=== PATIENT | female | born 1935 | race Caucasian/White ===

== ENCOUNTER 2019-10-23 10:24 | Inpatient (IN) ==
[~2019-10-23 10:24] MED LIST: ETOMIDATE 20 MG/10 ML VIAL IV ONE; LIDOCAINE 2% 5 ML VIAL ONE; ONDANSETRON 4 MG/2 ML VIAL ONE
[2019-10-23] MEDS ORDERED: DICYCLOMINE 20 MG/2 ML AMP IM ONE (10:47)
[2019-10-23] MEDS ORDERED: ONDANSETRON 4 MG/2 ML VIAL IV STA (10:47)
[2019-10-23] MEDS ORDERED: PANTOPRAZOLE 40 MG VIAL IV STA (10:47)
[2019-10-23] MEDS ORDERED: METOCLOPRAMIDE 10 MG/2 ML VIAL IV STA (10:47)
[2019-10-23] MEDS ORDERED: SODIUM CHLORIDE 0.9% 1,000 ML IV STA ×2 (10:47→12:32)
[2019-10-23 11:47] LABS: Basophils % 0.2 % (0.0-0.8); Hematocrit 51.8 VOL% (35.7-47.0); Hemoglobin 18.2 GM/DL (12.0-16.0); Immature Granulocytes Absolute 0.25 #; Lymphocytes # 0.9 10*3/uL (1.4-4.0); Lymphocytes % 3.5 % (21.3-54.2); Mean Corpuscular HGB Conc 35.1 GM/DL (32-36); Mean Corpuscular Volume 80.8 FL (87-102); Mean Platelet Volume 10.1 FL (9.6-12.0); Monocytes % 8.4 % (1.7-12.7); Neutrophils % 86.9 % (38.7-73.9); Platelet Count 457 T/CUMM (130-400); Red Blood Count 6.41 MC/CUMM (3.8-5.5); Red Cell Distribution Width 17.2 % (9.3-17.3); White Blood Count 26.2 T/CUMM (4-12)
[2019-10-23] MEDS ORDERED: LEVOFLOXACIN INJ 750 MG in PREMIX 1 EACH IV STA (12:02)
[2019-10-23] MEDS ORDERED: metroNIDAZOLE INJ 500 MG in PREMIX 1 EACH IV STA (12:02)
[2019-10-23 12:07] LABS: Troponin I 0.029 NG/ML (0.00-0.045)
[2019-10-23 12:13] LABS: Band Neutrophils 37 % (0-10); Lymphocytes 6 % (20-55); Macrocytosis Slight; Metamyelocytes 7 %; Platelet Estimate Normal; Segmented Neutrophils 42 % (50-85); Total Cells Counted 100
[2019-10-23 12:14] LABS: Anisocytosis 1+; Giant Platelets Few
[2019-10-23 12:26] LABS: Albumin 2.7 G/DL (3.4-5.0); Bilirubin,Total 1.7 MG/DL (0.2-1.0); Calcium 8.8 MG/DL (8.5-10.1); Osmolality,Calculated 255.8 MOS/KG (273-304); Total Protein 7.5 G/DL (6.4-8.3)
[2019-10-23] MEDS ORDERED: metroNIDAZOLE 500 MG/100 ML PREMIX IV ONE (12:41)
[2019-10-23 12:48] LABS: Amorphous Crystals,Urine Occasional /HPF (Few); Apearance,Urine CLOUDY (Clear); Bacteria,Urine Many /HPF (Few); Bilirubin,Urine Negative (Negative); Blood, Urine Large mg/dL (Negative); Glucose,Urine (UA) Negative (Negative); Ketones,Urine 5 mg/dL (Negative); Mucus,Urine Occasional /LPF (Occasional); Nitrite,Urine Negative (Negative); Protein,Urine 30 MG/DL; RBC,Urine 24 /HPF (0-4); Squamous Epithelial Cell,Urine Moderate /HPF (0-10); Urine Color Amber (Yellow); Urine Specific Gravity 1.015 (1.001-1.035); WBC,Urine 11 /HPF (0-6)
[2019-10-23] MEDS ORDERED: ONDANSETRON 4 MG/2 ML VIAL IV PRN (14:32)
[2019-10-23] MEDS ORDERED: DEXTROSE 10% 250 ML BAG IV PRN (14:32)
[2019-10-23] MEDS ORDERED: GLUCAGON 1 MG VIAL IM PRN (14:32)
[2019-10-23] MEDS ORDERED: MAGNESIUM SULF RIDER 4 GM in PREMIX 1 EACH IV PRN (14:47)
[2019-10-23] MEDS ORDERED: MAGNESIUM SULF RIDER 2 GM in PREMIX 1 EACH IV PRN (14:47)
[2019-10-23 16:30] LABS: Calcium 7.5 MG/DL (8.5-10.1); Osmolality,Calculated 264.8 MOS/KG (273-304)
[2019-10-23] MEDS ORDERED: HYDROmorphone 2 MG/1 ML VIAL IV ONE (16:56)
[2019-10-23] MEDS ORDERED: CIPROFLOXACIN INJ 400 MG in PREMIX 1 EACH IV SCH (17:00)
[2019-10-23] MEDS: metroNIDAZOLE INJ 500 MG in PREMIX 1 EACH IV SCH (17:23)
[2019-10-23] MEDS: SODIUM CHLORIDE 0.9% 1,000 ML IV SCH (17:23)
[2019-10-23 17:26] LABS: Hepatitis B Core IgM Quant 0.06 Index; Hepatitis B Surface Ag Quant 0.12 Index; Hepatitis B Surface Ag Result Negative (Negative); Hepatitis C Virus Ab Quant 0.05 Index; Hepatitis C Virus Ab Result Negative (Negative)
[2019-10-23] MEDS ORDERED: POTASSIUM CHLORIDE 20 MEQ TABLET PO ONE (17:45)
[2019-10-23] MEDS: POTASSIUM CHLORIDE RIDER 10 MEQ in PREMIX 1 EACH IV PRN ×3 (18:42→22:44)
[2019-10-24] MEDS: metroNIDAZOLE INJ 500 MG in PREMIX 1 EACH IV SCH ×4 (00:01→17:46)
[2019-10-24] MEDS: POTASSIUM CHLORIDE RIDER 10 MEQ in PREMIX 1 EACH IV PRN ×3 (02:09→05:12)
[2019-10-24] MEDS: SODIUM CHLORIDE 0.9% 1,000 ML IV SCH ×3 (03:08→21:58)
[2019-10-24 07:05] LABS: Basophils # 0.1 10*3/uL (0.0-0.2); Basophils % 0.3 % (0.0-0.8); Hematocrit 46.8 VOL% (35.7-47.0); Immature Granulocytes % 1.6 %; Immature Granulocytes Absolute 0.37 #; Lymphocytes # 0.8 10*3/uL (1.4-4.0); Lymphocytes % 3.4 % (21.3-54.2); Mean Corpuscular HGB Conc 34.2 GM/DL (32-36); Mean Corpuscular Volume 82.8 FL (87-102); Mean Platelet Volume 10.8 FL (9.6-12.0); Monocytes % 8.4 % (1.7-12.7); Neutrophils % 86.3 % (38.7-73.9); Platelet Count 376 T/CUMM (130-400); Red Blood Count 5.65 MC/CUMM (3.8-5.5); Red Cell Distribution Width 16.2 % (9.3-17.3); White Blood Count 22.7 T/CUMM (4-12)
[2019-10-24 07:32] LABS: Albumin 2.3 G/DL (3.4-5.0); Bilirubin,Total 1.8 MG/DL (0.2-1.0); Calcium 8.5 MG/DL (8.5-10.1); Osmolality,Calculated 251.8 MOS/KG (273-304); Risk Ratio 4.95; Thyroid Stimulating Hormone 0.939 uIU/ml (0.358-3.74); Total Protein 6.2 G/DL (6.4-8.3)
[2019-10-24 07:38] LABS: Band Neutrophils 11 % (0-10); Hypochromasia 1+; Lymphocytes 7 % (20-55); Segmented Neutrophils 76 % (50-85); Total Cells Counted 100
[2019-10-24 07:39] LABS: Anisocytosis 1+; Platelet Estimate Normal
[2019-10-24] MEDS: PANTOPRAZOLE 40 MG VIAL IV SCH (09:52)
[2019-10-24] MEDS: CIPROFLOXACIN INJ 400 MG in PREMIX 1 EACH IV SCH (09:56)
[2019-10-24] MEDS ORDERED: ACETAMINOPHEN 325 MG TABLET PO PRN (10:42)
[2019-10-24] MEDS: traMADol 50 MG TABLET PO PRN (11:41)
[2019-10-24 12:24] LABS: Calcium 8.6 MG/DL (8.5-10.1); Osmolality,Calculated 251.8 MOS/KG (273-304)
[2019-10-24 18:25] LABS: Calcium 8.5 MG/DL (8.5-10.1); Osmolality,Calculated 249.8 MOS/KG (273-304)
[2019-10-25] MEDS: metroNIDAZOLE INJ 500 MG in PREMIX 1 EACH IV SCH ×4 (00:03→18:42)
[2019-10-25] MEDS: CIPROFLOXACIN INJ 400 MG in PREMIX 1 EACH IV SCH (03:30)
[2019-10-25 06:16] LABS: Basophils % 0.1 % (0.0-0.8); Hematocrit 43.1 VOL% (35.7-47.0); Hemoglobin 14.7 GM/DL (12.0-16.0); Immature Granulocytes % 3.4 %; Immature Granulocytes Absolute 0.69 #; Lymphocytes # 0.9 10*3/uL (1.4-4.0); Lymphocytes % 4.3 % (21.3-54.2); Mean Corpuscular HGB Conc 34.1 GM/DL (32-36); Mean Corpuscular Volume 82.1 FL (87-102); Mean Platelet Volume 10.8 FL (9.6-12.0); Monocytes % 8.6 % (1.7-12.7); Neutrophils % 83.6 % (38.7-73.9); Platelet Count 272 T/CUMM (130-400); Red Blood Count 5.25 MC/CUMM (3.8-5.5); Red Cell Distribution Width 16.2 % (9.3-17.3); White Blood Count 20.4 T/CUMM (4-12)
[2019-10-25 07:04] LABS: Albumin 1.7 G/DL (3.4-5.0); Bilirubin,Total 1.4 MG/DL (0.2-1.0); Osmolality,Calculated 250.5 MOS/KG (273-304); Total Protein 5.3 G/DL (6.4-8.3)
[2019-10-25 07:08] LABS: Band Neutrophils 4 % (0-10); Hypochromasia Slight; Lymphocytes 7 % (20-55); Platelet Estimate Adequate; Segmented Neutrophils 81 % (50-85); Total Cells Counted 100
[2019-10-25] MEDS: PANTOPRAZOLE 40 MG VIAL IV SCH (08:55)
[2019-10-25] MEDS: POLYETHYLENE GLYCOL POWDER 17 GM PACK PO SCH (10:28)
[2019-10-25] MEDS: DOCUSATE SODIUM 100 MG CAPSULE PO SCH ×2 (10:28→22:48)
[2019-10-25] MEDS: traMADol 50 MG TABLET PO PRN (11:50)
[2019-10-25] MEDS: SODIUM CHLORIDE 0.9% 1,000 ML IV SCH (13:43)
[2019-10-25] MEDS: SODIUM BICARB INJ 150 MEQ in STERILE WATER INJ 850 ML IV SCH (16:32)
[2019-10-26] MEDS: CIPROFLOXACIN INJ 400 MG in PREMIX 1 EACH IV SCH ×2 (01:55→15:11)
[2019-10-26] MEDS: metroNIDAZOLE INJ 500 MG in PREMIX 1 EACH IV SCH ×4 (05:22→18:03)
[2019-10-26 06:40] LABS: Hematocrit 38.1 VOL% (35.7-47.0); Hemoglobin 12.9 GM/DL (12.0-16.0); Immature Granulocytes % 5.4 %; Immature Granulocytes Absolute 1.23 #; Lymphocytes # 1.1 10*3/uL (1.4-4.0); Lymphocytes % 4.7 % (21.3-54.2); Mean Corpuscular HGB Conc 33.9 GM/DL (32-36); Mean Corpuscular Volume 81.8 FL (87-102); Mean Platelet Volume 11.1 FL (9.6-12.0); Monocytes % 10.7 % (1.7-12.7); Neutrophils % 79.2 % (38.7-73.9); Platelet Count 262 T/CUMM (130-400); Red Blood Count 4.66 MC/CUMM (3.8-5.5); Red Cell Distribution Width 16.5 % (9.3-17.3)
[2019-10-26 07:13] LABS: Band Neutrophils 22 % (0-10); Lymphocytes 7 % (20-55); Metamyelocytes 4 %; Myelocytes 1 %; Platelet Estimate Normal; Segmented Neutrophils 57 % (50-85); Total Cells Counted 100
[2019-10-26 07:14] LABS: Anisocytosis Slight; Smudge Cells Few
[2019-10-26 07:20] LABS: Albumin 1.8 G/DL (3.4-5.0); Bilirubin,Total 1.6 MG/DL (0.2-1.0); Calcium 7.9 MG/DL (8.5-10.1); Osmolality,Calculated 257.5 MOS/KG (273-304)
[2019-10-26] MEDS: SODIUM BICARB INJ 150 MEQ in STERILE WATER INJ 850 ML IV SCH (07:30)
[2019-10-26 07:38] LABS: Calcium 7.5 MG/DL (8.5-10.1); Osmolality,Calculated 256.5 MOS/KG (273-304)
[2019-10-26] MEDS ORDERED: SODIUM BICARB INJ 100 MEQ in SODIUM CHLORIDE 0.45% 900 ML IV SCH (09:00)
[2019-10-26] MEDS: PANTOPRAZOLE 40 MG VIAL IV SCH (09:29)
[2019-10-26] MEDS: DOCUSATE SODIUM 100 MG CAPSULE PO SCH ×2 (09:29→20:15)
[2019-10-26] MEDS: POLYETHYLENE GLYCOL POWDER 17 GM PACK PO SCH (09:29)
[2019-10-26] MEDS: SODIUM BICARB INJ 100 MEQ in SODIUM CHLORIDE 0.45% 1,000 ML IV SCH (10:15)
[2019-10-26] MEDS: traMADol 50 MG TABLET PO PRN (10:21)
[2019-10-27] MEDS: metroNIDAZOLE INJ 500 MG in PREMIX 1 EACH IV SCH ×4 (00:26→17:24)
[2019-10-27] MEDS: SODIUM BICARB INJ 100 MEQ in SODIUM CHLORIDE 0.45% 1,000 ML IV SCH ×2 (00:29→18:10)
[2019-10-27] MEDS: SODIUM CHLORIDE 0.9% 1,000 ML IV SCH (05:22)
[2019-10-27 08:31] LABS: Basophils % 0.1 % (0.0-0.8); Hematocrit 40.3 VOL% (35.7-47.0); Hemoglobin 13.5 GM/DL (12.0-16.0); Immature Granulocytes % 5.1 %; Immature Granulocytes Absolute 1.45 #; Lymphocytes # 1.3 10*3/uL (1.4-4.0); Lymphocytes % 4.4 % (21.3-54.2); Mean Corpuscular HGB Conc 33.5 GM/DL (32-36); Mean Corpuscular Volume 83.8 FL (87-102); Mean Platelet Volume 10.3 FL (9.6-12.0); Monocytes % 10.1 % (1.7-12.7); NRBC # 0.02 10*3/uL; Neutrophils % 80.3 % (38.7-73.9); Platelet Count 217 T/CUMM (130-400); Red Blood Count 4.81 MC/CUMM (3.8-5.5); Red Cell Distribution Width 16.7 % (9.3-17.3); White Blood Count 28.4 T/CUMM (4-12)
[2019-10-27 09:23] LABS: Band Neutrophils 2 % (0-10); Hypochromasia 1+; Lymphocytes 6 % (20-55); Microcytosis 1+; Segmented Neutrophils 83 % (50-85); Total Cells Counted 100
[2019-10-27 09:24] LABS: Platelet Estimate Normal; Polychromasia Slight
[2019-10-27 09:30] LABS: Calcium 7.5 MG/DL (8.5-10.1)
[2019-10-27 09:31] LABS: Osmolality,Calculated 260.4 MOS/KG (273-304)
[2019-10-27] MEDS: CIPROFLOXACIN INJ 400 MG in PREMIX 1 EACH IV SCH (09:57)
[2019-10-27] MEDS: PANTOPRAZOLE 40 MG VIAL IV SCH (09:58)
[2019-10-27] MEDS: POLYETHYLENE GLYCOL POWDER 17 GM PACK PO SCH (09:58)
[2019-10-27] MEDS: DOCUSATE SODIUM 100 MG CAPSULE PO SCH ×2 (09:58→21:07)
[2019-10-27] MEDS: MULTIVITAMIN IV SCH (13:13)
[2019-10-27] MEDS: SODIUM BICARB IV SCH (13:13)
[2019-10-27] MEDS: [UNRECOGNIZED DRUG - OTHER] IV SCH (13:13)
[2019-10-27] MEDS: POTASSIUM CHLORIDE IV SCH (13:13)
[2019-10-27 18:43] LABS: Apearance,Urine CLEAR (Clear); Bacteria,Urine Occasional /HPF (Few); Bilirubin,Urine Negative (Negative); Blood, Urine Small mg/dL (Negative); Glucose,Urine (UA) Negative (Negative); Ketones,Urine Negative (Negative); Nitrite,Urine Negative (Negative); Protein,Urine 30 MG/DL; RBC,Urine 28 /HPF (0-4); Squamous Epithelial Cell,Urine Occasional /HPF (0-10); Urine Color Amber (Yellow); Urine Specific Gravity > 1.060 (1.001-1.035); WBC,Urine 1 /HPF (0-6)
[2019-10-28] MEDS: metroNIDAZOLE INJ 500 MG in PREMIX 1 EACH IV SCH ×3 (00:36→12:31)
[2019-10-28] MEDS: CIPROFLOXACIN INJ 400 MG in PREMIX 1 EACH IV SCH (04:06)
[2019-10-28 06:30] LABS: Basophils % 0.1 % (0.0-0.8); Hematocrit 42.5 VOL% (35.7-47.0); Hemoglobin 14.2 GM/DL (12.0-16.0); Immature Granulocytes % 4.2 %; Lymphocytes # 0.9 10*3/uL (1.4-4.0); Lymphocytes % 3.3 % (21.3-54.2); Mean Corpuscular HGB Conc 33.4 GM/DL (32-36); Mean Corpuscular Volume 84.2 FL (87-102); Monocytes % 5.5 % (1.7-12.7); NRBC # 0.04 10*3/uL; Neutrophils % 86.9 % (38.7-73.9); Platelet Count 218 T/CUMM (130-400); Red Blood Count 5.05 MC/CUMM (3.8-5.5); White Blood Count 28.4 T/CUMM (4-12)
[2019-10-28 06:54] LABS: Calcium 7.8 MG/DL (8.5-10.1); Osmolality,Calculated 254.8 MOS/KG (273-304)
[2019-10-28 07:38] LABS: Anisocytosis Slight; Band Neutrophils 26 % (0-10); Lymphocytes 4 % (20-55); Platelet Estimate Normal; Segmented Neutrophils 62 % (50-85); Smudge Cells Few; Total Cells Counted 100
[2019-10-28 09:12] LABS: Albumin 1.6 G/DL (3.4-5.0); Bilirubin,Direct 0.47 MG/DL (0.0-0.20); Bilirubin,Indirect 0.7 MG/DL (0.0-1.0); Bilirubin,Total 1.2 MG/DL (0.2-1.0); Total Protein 5.5 G/DL (6.4-8.3)
[2019-10-28] MEDS: traMADol 50 MG TABLET PO PRN ×2 (09:44→21:18)
[2019-10-28] MEDS: POLYETHYLENE GLYCOL POWDER 17 GM PACK PO SCH (09:44)
[2019-10-28] MEDS: DOCUSATE SODIUM 100 MG CAPSULE PO SCH ×2 (09:45→21:18)
[2019-10-28] MEDS: PANTOPRAZOLE 40 MG VIAL IV SCH (09:48)
[2019-10-28] MEDS: PIPERACILLIN/TAZOBACTAM 3,375 MG in SODIUM CHLORIDE 0.9% 100 ML IV SCH ×2 (14:03→21:18)
[2019-10-28] MEDS: POTASSIUM CHLORIDE RIDER 10 MEQ in PREMIX 1 EACH IV PRN ×4 (14:04→17:36)
[2019-10-28] MEDS: POTASSIUM CHLORIDE INJ 10 MEQ in DEXTROSE 5% NACL 0.9% 1,000 ML IV SCH (14:04)
[2019-10-28] MEDS: POTASSIUM CHLORIDE IV SCH (19:45)
[2019-10-28] MEDS: SODIUM BICARB IV SCH (19:45)
[2019-10-28] MEDS: MULTIVITAMIN IV SCH (19:45)
[2019-10-28] MEDS: [UNRECOGNIZED DRUG - OTHER] IV SCH (19:45)
[2019-10-28] MEDS ORDERED: FUROSEMIDE 20 MG/2 ML VIAL IV ONE (22:15)
[2019-10-28] MEDS ORDERED: ALBUTEROL/IPRATROPIUM 3 ML NEB RESP TX PRN (22:16)
[2019-10-29] MEDS: PIPERACILLIN/TAZOBACTAM 3,375 MG in SODIUM CHLORIDE 0.9% 100 ML IV SCH ×3 (05:52→21:56)
[2019-10-29] MEDS: POTASSIUM CHLORIDE INJ 10 MEQ in DEXTROSE 5% NACL 0.9% 1,000 ML IV SCH ×2 (07:15→14:53)
[2019-10-29 08:41] LABS: Basophils % 0.1 % (0.0-0.8); Hematocrit 43.8 VOL% (35.7-47.0); Hemoglobin 14.6 GM/DL (12.0-16.0); Immature Granulocytes Absolute 1.35 #; Lymphocytes # 1.5 10*3/uL (1.4-4.0); Lymphocytes % 4.3 % (21.3-54.2); Mean Corpuscular HGB Conc 33.3 GM/DL (32-36); Mean Corpuscular Volume 83.7 FL (87-102); Mean Platelet Volume 11.5 FL (9.6-12.0); Monocytes % 4.1 % (1.7-12.7); NRBC # 0.04 10*3/uL; Neutrophils % 87.5 % (38.7-73.9); Platelet Count 196 T/CUMM (130-400); Red Blood Count 5.23 MC/CUMM (3.8-5.5); Red Cell Distribution Width 17.2 % (9.3-17.3)
[2019-10-29 08:50] LABS: Calcium 7.8 MG/DL (8.5-10.1); Osmolality,Calculated 264.5 MOS/KG (273-304)
[2019-10-29 09:44] LABS: Band Neutrophils 23 % (0-10); Lymphocytes 8 % (20-55); Metamyelocytes 2 %; Myelocytes 1 %; Platelet Estimate Normal; Segmented Neutrophils 62 % (50-85); Smudge Cells Few; Total Cells Counted 100
[2019-10-29 09:45] LABS: Anisocytosis 1+; Macrocytosis Slight
[2019-10-29] MEDS: DOCUSATE SODIUM 100 MG CAPSULE PO SCH ×2 (10:30→22:05)
[2019-10-29] MEDS: POLYETHYLENE GLYCOL POWDER 17 GM PACK PO SCH (10:31)
[2019-10-29] MEDS: PANTOPRAZOLE 40 MG VIAL IV SCH (12:26)
[2019-10-29] MEDS: metroNIDAZOLE INJ 500 MG in PREMIX 1 EACH IV SCH ×2 (12:27→18:50)
[2019-10-29] MEDS: traMADol 50 MG TABLET PO PRN (12:36)
[2019-10-29] MEDS: DEXTROSE 5% NACL 0.9% 1,000 ML IV SCH (14:40)
[2019-10-30] MEDS: metroNIDAZOLE INJ 500 MG in PREMIX 1 EACH IV SCH ×4 (00:58→18:13)
[2019-10-30 02:04] LABS: Albumin 1.4 G/DL (3.4-5.0); Bilirubin,Total 0.9 MG/DL (0.2-1.0); Calcium 7.4 MG/DL (8.5-10.1); Osmolality,Calculated 279.8 MOS/KG (273-304); Total Protein 5.3 G/DL (6.4-8.3)
[2019-10-30 02:12] LABS: Basophils % 0.1 % (0.0-0.8); Hematocrit 45.2 VOL% (35.7-47.0); Hemoglobin 14.7 GM/DL (12.0-16.0); Immature Granulocytes % 3.9 %; Immature Granulocytes Absolute 1.49 #; Lymphocytes # 1.5 10*3/uL (1.4-4.0); Mean Corpuscular HGB Conc 32.5 GM/DL (32-36); Mean Corpuscular Volume 87.3 FL (87-102); Mean Platelet Volume 11.4 FL (9.6-12.0); Monocytes % 3.3 % (1.7-12.7); NRBC # 0.06 10*3/uL; Neutrophils % 88.7 % (38.7-73.9); Platelet Count 186 T/CUMM (130-400); Red Blood Count 5.18 MC/CUMM (3.8-5.5); Red Cell Distribution Width 18.1 % (9.3-17.3); White Blood Count 37.9 T/CUMM (4-12)
[2019-10-30 02:49] LABS: Band Neutrophils 2 % (0-10); Lymphocytes 1 % (20-55); Segmented Neutrophils 95 % (50-85); Total Cells Counted 100
[2019-10-30 02:50] LABS: Anisocytosis 1+; Platelet Estimate Normal
[2019-10-30] MEDS: DEXTROSE 5% NACL 0.9% 1,000 ML IV SCH ×3 (05:46→22:26)
[2019-10-30] MEDS: PIPERACILLIN/TAZOBACTAM 3,375 MG in SODIUM CHLORIDE 0.9% 100 ML IV SCH ×2 (06:07→15:21)
[2019-10-30] MEDS ORDERED: SODIUM CHLORIDE 0.9% 1,000 ML IV ONE ×2 (07:55→11:38)
[2019-10-30] MEDS: POLYETHYLENE GLYCOL POWDER 17 GM PACK PO SCH (09:17)
[2019-10-30] MEDS: LEVOTHYROXINE 75 MCG TABLET PO SCH (09:17)
[2019-10-30] MEDS: ASPIRIN EC 81 MG TABLET PO SCH (09:17)
[2019-10-30] MEDS: DOCUSATE SODIUM 100 MG CAPSULE PO SCH ×2 (09:17→22:26)
[2019-10-30] MEDS ORDERED: SODIUM PHOSPHATE ENEMA 133 ML BOTTLE RECTAL ONE (09:46)
[2019-10-30] MEDS: PANTOPRAZOLE 40 MG VIAL IV SCH (11:19)
[2019-10-30] MEDS: LACTATED RINGERS 1,000 ML IV SCH (11:22)
[2019-10-30] MEDS ORDERED: DEXTROSE 50% 25 GM/50 ML VIAL IV PRN (11:40)
[2019-10-30] MEDS: INSULIN LISPRO 100 UNIT/ML SUBCUT SCH ×2 (12:05→18:01)
[2019-10-30 17:22] LABS: Basophils % 0.1 % (0.0-0.8); Hematocrit 40.5 VOL% (35.7-47.0); Hemoglobin 13.1 GM/DL (12.0-16.0); Immature Granulocytes Absolute 1.17 #; Lymphocytes % 3.4 % (21.3-54.2); Mean Corpuscular HGB Conc 32.3 GM/DL (32-36); Mean Corpuscular Volume 87.7 FL (87-102); Mean Platelet Volume 11.3 FL (9.6-12.0); Monocytes % 3.6 % (1.7-12.7); NRBC # 0.05 10*3/uL; Neutrophils % 88.9 % (38.7-73.9); Platelet Count 163 T/CUMM (130-400); Red Blood Count 4.62 MC/CUMM (3.8-5.5); Red Cell Distribution Width 18.2 % (9.3-17.3); White Blood Count 29.1 T/CUMM (4-12)
[2019-10-30 17:40] LABS: Albumin 1.3 G/DL (3.4-5.0); Bilirubin,Total 0.8 MG/DL (0.2-1.0); Calcium 7.2 MG/DL (8.5-10.1); Osmolality,Calculated 284.2 MOS/KG (273-304); Total Protein 4.9 G/DL (6.4-8.3)
[2019-10-30 17:51] LABS: Lymphocytes 5 % (20-55); Microcytosis Slight; Segmented Neutrophils 94 % (50-85); Total Cells Counted 100
[2019-10-30 17:53] LABS: Anisocytosis 1+; Hypochromasia Slight; Poikilocytosis 1+; Polychromasia 1+
[2019-10-30 17:54] LABS: Burr Cells 1+; Platelet Estimate Normal; Toxic Granulation 1+
[2019-10-30] MEDS ORDERED: ALBUMIN 25% 25 GM in PREMIX 1 EACH IV ONE (20:50)
[2019-10-30] MEDS ORDERED: DOPamine 800 MG/250 ML PREMIX IV PRN (21:00)
[2019-10-30] MEDS: [UNRECOGNIZED DRUG - OTHER] IV SCH (21:58)
[2019-10-30] MEDS: TRACE ELEMENTS IV SCH (21:58)
[2019-10-30] MEDS: MULTIVITAMIN IV SCH (21:58)
[2019-10-30] MEDS: SODIUM CHLORIDE 0.9% 1,000 ML IV SCH (21:59)
[2019-10-31] MEDS: SODIUM CHLORIDE 0.9% 1,000 ML IV SCH ×4 (00:03→21:33)
[2019-10-31] MEDS: PIPERACILLIN/TAZOBACTAM 3,375 MG in SODIUM CHLORIDE 0.9% 100 ML IV SCH (01:12)
[2019-10-31] MEDS: metroNIDAZOLE INJ 500 MG in PREMIX 1 EACH IV SCH ×5 (01:13→23:38)
[2019-10-31] MEDS: INSULIN LISPRO 100 UNIT/ML SUBCUT SCH ×5 (01:13→23:35)
[2019-10-31 04:07] LABS: Basophils # 0.1 10*3/uL (0.0-0.2); Basophils % 0.6 % (0.0-0.8); Hematocrit 36.1 VOL% (35.7-47.0); Hemoglobin 11.4 GM/DL (12.0-16.0); Immature Granulocytes % 3.4 %; Immature Granulocytes Absolute 0.67 #; Lymphocytes # 0.8 10*3/uL (1.4-4.0); Lymphocytes % 4.1 % (21.3-54.2); Mean Corpuscular HGB Conc 31.6 GM/DL (32-36); Mean Corpuscular Volume 90.3 FL (87-102); Mean Platelet Volume 10.9 FL (9.6-12.0); Monocytes % 4.3 % (1.7-12.7); NRBC # 0.03 10*3/uL; Neutrophils % 87.6 % (38.7-73.9); Platelet Count 119 T/CUMM (130-400); Red Cell Distribution Width 18.4 % (9.3-17.3); White Blood Count 19.5 T/CUMM (4-12)
[2019-10-31 04:28] LABS: Albumin 1.7 G/DL (3.4-5.0); Bilirubin,Total 0.7 MG/DL (0.2-1.0); Calcium 7.5 MG/DL (8.5-10.1); Total Protein 4.8 G/DL (6.4-8.3)
[2019-10-31 04:29] LABS: Prealbumin 4.5 MG/DL (20-40)
[2019-10-31 04:35] LABS: Lymphocytes 5 % (20-55); Platelet Estimate Normal; Segmented Neutrophils 94 % (50-85); Total Cells Counted 100
[2019-10-31 04:36] LABS: Hypochromasia Slight; Microcytosis Slight; Polychromasia Slight; Target Cells Slight
[2019-10-31] MEDS: ASPIRIN EC 81 MG TABLET PO SCH (08:58)
[2019-10-31] MEDS: DOCUSATE SODIUM 100 MG CAPSULE PO SCH ×2 (08:58→20:42)
[2019-10-31] MEDS: POLYETHYLENE GLYCOL POWDER 17 GM PACK PO SCH (08:59)
[2019-10-31] MEDS: LEVOTHYROXINE 75 MCG TABLET PO SCH (08:59)
[2019-10-31] MEDS: PANTOPRAZOLE 40 MG VIAL IV SCH (08:59)
[2019-10-31] MEDS: LACTATED RINGERS 1,000 ML IV SCH (10:06)
[2019-10-31] MEDS: MEROPENEM 500 MG in SODIUM CHLORIDE 0.9% 100 ML IV SCH ×3 (10:21→20:43)
[2019-10-31] MEDS: POTASSIUM CHLORIDE RIDER 10 MEQ in PREMIX 1 EACH IV PRN ×2 (11:00→14:20)
[2019-10-31] MEDS: MULTIVITAMIN IV SCH (16:30)
[2019-10-31] MEDS: TRACE ELEMENTS IV SCH (16:30)
[2019-10-31] MEDS: [UNRECOGNIZED DRUG - OTHER] IV SCH (16:30)
[2019-11-01] MEDS: MEROPENEM 500 MG in SODIUM CHLORIDE 0.9% 100 ML IV SCH ×4 (02:08→20:44)
[2019-11-01] MEDS: metroNIDAZOLE INJ 500 MG in PREMIX 1 EACH IV SCH ×4 (05:06→23:50)
[2019-11-01] MEDS: SODIUM CHLORIDE 0.9% 1,000 ML IV SCH ×2 (05:06→18:24)
[2019-11-01] MEDS: INSULIN LISPRO 100 UNIT/ML SUBCUT SCH ×4 (05:06→23:44)
[2019-11-01 06:21] LABS: Basophils # 0.1 10*3/uL (0.0-0.2); Basophils % 0.4 % (0.0-0.8); Eosinophils % 0.2 % (0.00-10.9); Hematocrit 34.7 VOL% (35.7-47.0); Hemoglobin 10.7 GM/DL (12.0-16.0); Immature Granulocytes % 1.6 %; Lymphocytes # 0.5 10*3/uL (1.4-4.0); Lymphocytes % 3.9 % (21.3-54.2); Mean Corpuscular HGB Conc 30.8 GM/DL (32-36); Mean Platelet Volume 11.9 FL (9.6-12.0); Monocytes % 4.3 % (1.7-12.7); NRBC # 0.06 10*3/uL; Neutrophils % 89.6 % (38.7-73.9); Platelet Count 122 T/CUMM (130-400); Red Blood Count 3.77 MC/CUMM (3.8-5.5); Red Cell Distribution Width 18.7 % (9.3-17.3); White Blood Count 12.6 T/CUMM (4-12)
[2019-11-01 06:45] LABS: Band Neutrophils 7 % (0-10); Hypochromasia 1+; Lymphocytes 1 % (20-55); Segmented Neutrophils 88 % (50-85); Total Cells Counted 100
[2019-11-01 06:46] LABS: Burr Cells Few; Microcytosis 1+; Target Cells Slight
[2019-11-01] MEDS: ASPIRIN EC 81 MG TABLET PO SCH (09:33)
[2019-11-01] MEDS: DOCUSATE SODIUM 100 MG CAPSULE PO SCH ×2 (09:33→20:44)
[2019-11-01] MEDS: PANTOPRAZOLE 40 MG VIAL IV SCH (09:34)
[2019-11-01] MEDS: POLYETHYLENE GLYCOL POWDER 17 GM PACK PO SCH (09:34)
[2019-11-01] MEDS: LEVOTHYROXINE 75 MCG TABLET PO SCH (09:34)
[2019-11-01 10:16] LABS: Calcium 8.1 MG/DL (8.5-10.1); Osmolality,Calculated 287.5 MOS/KG (273-304)
[2019-11-01] MEDS: LACTATED RINGERS 1,000 ML IV SCH (11:50)
[2019-11-01] MEDS: POTASSIUM CHLORIDE RIDER 10 MEQ in PREMIX 1 EACH IV PRN ×4 (16:25→19:20)
[2019-11-02] MEDS: SODIUM CHLORIDE 0.9% 1,000 ML IV SCH ×2 (01:10→12:41)
[2019-11-02] MEDS: MEROPENEM 500 MG in SODIUM CHLORIDE 0.9% 100 ML IV SCH ×4 (02:30→20:51)
[2019-11-02] MEDS: metroNIDAZOLE INJ 500 MG in PREMIX 1 EACH IV SCH ×3 (05:16→18:07)
[2019-11-02 05:35] LABS: Basophils % 0.3 % (0.0-0.8); Eosinophils % 0.2 % (0.00-10.9); Hematocrit 35.3 VOL% (35.7-47.0); Hemoglobin 10.9 GM/DL (12.0-16.0); Immature Granulocytes % 1.5 %; Immature Granulocytes Absolute 0.19 #; Lymphocytes # 0.9 10*3/uL (1.4-4.0); Mean Corpuscular HGB Conc 30.9 GM/DL (32-36); Mean Corpuscular Volume 91.5 FL (87-102); Mean Platelet Volume 11.6 FL (9.6-12.0); Monocytes % 5.3 % (1.7-12.7); NRBC # 0.07 10*3/uL; Neutrophils % 85.7 % (38.7-73.9); Platelet Count 145 T/CUMM (130-400); Red Blood Count 3.86 MC/CUMM (3.8-5.5); Red Cell Distribution Width 19.4 % (9.3-17.3); White Blood Count 12.9 T/CUMM (4-12)
[2019-11-02] MEDS: INSULIN LISPRO 100 UNIT/ML SUBCUT SCH ×3 (05:35→18:08)
[2019-11-02 05:59] LABS: Atypical Lymphocytes Few; Band Neutrophils 6 % (0-10); Eosinophils 1 % (0-10); Hypochromasia 1+; Lymphocytes 6 % (20-55); Microcytosis 1+; Polychromasia Slight; Segmented Neutrophils 81 % (50-85); Total Cells Counted 100
[2019-11-02 06:00] LABS: Target Cells Slight
[2019-11-02 06:05] LABS: Calcium 7.2 MG/DL (8.5-10.1); Osmolality,Calculated 295.6 MOS/KG (273-304)
[2019-11-02] MEDS: POTASSIUM CHLORIDE RIDER 10 MEQ in PREMIX 1 EACH IV PRN ×4 (06:20→09:18)
[2019-11-02] MEDS: DOCUSATE SODIUM 100 MG CAPSULE PO SCH ×2 (09:30→21:21)
[2019-11-02] MEDS: ASPIRIN EC 81 MG TABLET PO SCH (09:30)
[2019-11-02] MEDS: LEVOTHYROXINE 75 MCG TABLET PO SCH (09:30)
[2019-11-02] MEDS: POLYETHYLENE GLYCOL POWDER 17 GM PACK PO SCH (09:30)
[2019-11-02] MEDS: PANTOPRAZOLE 40 MG VIAL IV SCH (09:46)
[2019-11-02 09:56] LABS: ABG Base Excess -6.2 MMOL/L (-2.5-2.5); ABG HCO3 19.2 MMOL/L (20-26); ABG Oxygen Saturation 89.7 % (95-100); ABG PCO2 60.7 MM HG (35-48); ABG PO2 69.2 MM HG (80-95); ABG TCO2 21.3 MMOL/L (23-27); Allen Test Positive; Pt O2 Delivery Device Venturi Mask
[2019-11-02 09:58] LABS: ABG PH 7.191 (7.35-7.45)
[2019-11-02] MEDS: LACTATED RINGERS 1,000 ML IV SCH (11:21)
[2019-11-02] MEDS: ALBUTEROL/IPRATROPIUM 3 ML NEB RESP TX SCH ×4 (13:26→23:24)
[2019-11-02] MEDS: DESITIN 4OZ/NYSTATIN 15 GRAM MIXTURE PASTE TOP SCH ×2 (15:00→21:33)
[2019-11-02] MEDS: SODIUM CHLORIDE 0.45% 1,000 ML IV SCH (20:35)
[2019-11-03] MEDS: metroNIDAZOLE INJ 500 MG in PREMIX 1 EACH IV SCH ×4 (00:33→17:58)
[2019-11-03] MEDS: INSULIN LISPRO 100 UNIT/ML SUBCUT SCH ×4 (00:43→17:58)
[2019-11-03 01:59] LABS: Allen Test Positive; Pt O2 Delivery Device BIPAP
[2019-11-03 02:00] LABS: ABG Base Excess -4.1 MMOL/L (-2.5-2.5); ABG PCO2 40.5 MM HG (35-48); ABG PH 7.334 (7.35-7.45); ABG PO2 82.9 MM HG (80-95); ABG TCO2 19.7 MMOL/L (23-27)
[2019-11-03 02:33] LABS: Basophils % 0.2 % (0.0-0.8); Hemoglobin 10.7 GM/DL (12.0-16.0); Mean Platelet Volume 11.1 FL (9.6-12.0); Monocytes % 5.7 % (1.7-12.7); NRBC # 0.05 10*3/uL; Red Cell Distribution Width 19.5 % (9.3-17.3)
[2019-11-03 02:47] LABS: Calcium 7.3 MG/DL (8.5-10.1); Osmolality,Calculated 301.1 MOS/KG (273-304)
[2019-11-03] MEDS: MEROPENEM 500 MG in SODIUM CHLORIDE 0.9% 100 ML IV SCH ×4 (02:48→21:49)
[2019-11-03 03:04] LABS: Eosinophils # 0.1 10*3/uL (0.0-0.87); Eosinophils % 0.9 % (0.00-10.9); Immature Granulocytes % 0.9 %; Immature Granulocytes Absolute 0.08 #; Lymphocytes # 0.8 10*3/uL (1.4-4.0); Lymphocytes % 9.2 % (21.3-54.2); Mean Corpuscular HGB Conc 29.7 GM/DL (32-36); Mean Corpuscular Volume 95.7 FL (87-102); Neutrophils % 83.1 % (38.7-73.9); Platelet Count 166 T/CUMM (130-400); Red Blood Count 3.76 MC/CUMM (3.8-5.5); White Blood Count 8.6 T/CUMM (4-12)
[2019-11-03] MEDS: POTASSIUM CHLORIDE RIDER 10 MEQ in PREMIX 1 EACH IV PRN ×4 (03:24→06:30)
[2019-11-03] MEDS: ALBUTEROL/IPRATROPIUM 3 ML NEB RESP TX SCH ×5 (04:05→19:35)
[2019-11-03 04:48] LABS: Band Neutrophils 20 % (0-10); Segmented Neutrophils 69 % (50-85); Total Cells Counted 100
[2019-11-03 04:49] LABS: Anisocytosis 1+; Hypochromasia 1+; Lymphocytes 7 % (20-55); Macrocytosis 1+; Ovalocytes 1+; Platelet Estimate Normal
[2019-11-03] MEDS: DESITIN 4OZ/NYSTATIN 15 GRAM MIXTURE PASTE TOP SCH ×2 (09:52→21:00)
[2019-11-03] MEDS: POLYETHYLENE GLYCOL POWDER 17 GM PACK PO SCH (09:52)
[2019-11-03] MEDS: ASPIRIN EC 81 MG TABLET PO SCH (09:58)
[2019-11-03] MEDS: DOCUSATE SODIUM 100 MG CAPSULE PO SCH ×2 (09:58→22:36)
[2019-11-03] MEDS: PANTOPRAZOLE 40 MG VIAL IV SCH (09:59)
[2019-11-03] MEDS: LEVOTHYROXINE 75 MCG TABLET PO SCH (09:59)
[2019-11-03] MEDS: VANCOMYCIN INJ 1,250 MG in SODIUM CHLORIDE 0.9% 250 ML IV SCH (11:18)
[2019-11-03] MEDS: SODIUM CHLORIDE 0.45% 1,000 ML IV SCH (21:37)
[2019-11-04] MEDS: VANCOMYCIN INJ 1,250 MG in SODIUM CHLORIDE 0.9% 250 ML IV SCH ×3 (00:06→23:05)
[2019-11-04] MEDS: INSULIN LISPRO 100 UNIT/ML SUBCUT SCH ×4 (01:09→17:58)
[2019-11-04] MEDS: metroNIDAZOLE INJ 500 MG in PREMIX 1 EACH IV SCH ×4 (01:43→17:14)
[2019-11-04] MEDS: MEROPENEM 500 MG in SODIUM CHLORIDE 0.9% 100 ML IV SCH ×4 (03:31→22:20)
[2019-11-04] MEDS: ALBUTEROL/IPRATROPIUM 3 ML NEB RESP TX SCH ×6 (03:51→20:48)
[2019-11-04 06:15] LABS: ABG Base Excess -4.8 MMOL/L (-2.5-2.5); ABG HCO3 20.4 MMOL/L (20-26); ABG PCO2 38.3 MM HG (35-48); ABG PH 7.345 (7.35-7.45); ABG PO2 121.6 MM HG (80-95); ABG TCO2 21.6 MMOL/L (23-27); Allen Test Positive
[2019-11-04 06:37] LABS: Basophils % 0.2 % (0.0-0.8); Eosinophils # 0.1 10*3/uL (0.0-0.87); Eosinophils % 1.2 % (0.00-10.9); Hematocrit 37.2 VOL% (35.7-47.0); Hemoglobin 11.1 GM/DL (12.0-16.0); Immature Granulocytes % 0.9 %; Immature Granulocytes Absolute 0.05 #; Lymphocytes # 0.8 10*3/uL (1.4-4.0); Lymphocytes % 13.7 % (21.3-54.2); Mean Corpuscular HGB Conc 29.8 GM/DL (32-36); Mean Corpuscular Volume 93.5 FL (87-102); Mean Platelet Volume 11.2 FL (9.6-12.0); Monocytes % 6.9 % (1.7-12.7); NRBC # 0.08 10*3/uL; Neutrophils % 77.1 % (38.7-73.9); Platelet Count 207 T/CUMM (130-400); Red Blood Count 3.98 MC/CUMM (3.8-5.5); Red Cell Distribution Width 19.6 % (9.3-17.3); White Blood Count 5.8 T/CUMM (4-12)
[2019-11-04 07:03] LABS: Calcium 7.3 MG/DL (8.5-10.1); Osmolality,Calculated 298.3 MOS/KG (273-304)
[2019-11-04 07:11] LABS: Band Neutrophils 13 % (0-10); Lymphocytes 16 % (20-55); Segmented Neutrophils 63 % (50-85); Total Cells Counted 100
[2019-11-04 07:12] LABS: Atypical Lymphocytes Few; Hypochromasia 1+; Microcytosis 1+; Target Cells Slight
[2019-11-04 07:13] LABS: Polychromasia Slight
[2019-11-04] MEDS: POTASSIUM CHLORIDE INJ 30 MEQ in DEXTROSE 5% NACL 0.45% 1,000 ML IV SCH (08:51)
[2019-11-04] MEDS: POTASSIUM CHLORIDE 20 MEQ/15 ML UDCUP PER TUBE SCH (08:57)
[2019-11-04] MEDS: LEVOTHYROXINE 75 MCG TABLET PO SCH (10:27)
[2019-11-04] MEDS: POLYETHYLENE GLYCOL POWDER 17 GM PACK PO SCH (10:27)
[2019-11-04] MEDS: ASPIRIN EC 81 MG TABLET PO SCH (10:27)
[2019-11-04] MEDS: DOCUSATE SODIUM 100 MG CAPSULE PO SCH ×2 (10:27→21:11)
[2019-11-04] MEDS: DESITIN 4OZ/NYSTATIN 15 GRAM MIXTURE PASTE TOP SCH ×2 (10:27→22:21)
[2019-11-04] MEDS: PANTOPRAZOLE 40 MG VIAL IV SCH (10:27)
[2019-11-04] MEDS ORDERED: FUROSEMIDE 40 MG/4 ML VIAL IV ONE (14:00)
[2019-11-04] MEDS: ACETYLCYSTEINE 20% 800 MG/4 ML VIAL RESP TX SCH ×2 (14:15→20:48)
[2019-11-04] MEDS ORDERED: SODIUM CHLORIDE 0.45% 500 ML IV ONE ×2 (19:53→20:20)
[2019-11-04] MEDS ORDERED: ETOMIDATE 20 MG/10 ML VIAL IV ONE (20:00)
[2019-11-04] MEDS ORDERED: SUCCINYLCHOLINE 200 MG/10 ML VIAL ONE (20:01)
[2019-11-04 20:08] LABS: ABG Base Excess -4.3 MMOL/L (-2.5-2.5); ABG Oxygen Saturation 99.2 % (95-100); ABG PCO2 39.1 MM HG (35-48); ABG PH 7.347 (7.35-7.45); ABG PO2 293.2 MM HG (80-95); ABG TCO2 22.2 MMOL/L (23-27)
[2019-11-04 20:13] LABS: Basophils % 0.5 % (0.0-0.8); Eosinophils % 0.3 % (0.00-10.9); Hematocrit 34.8 VOL% (35.7-47.0); Hemoglobin 10.2 GM/DL (12.0-16.0); Immature Granulocytes % 1.3 %; Immature Granulocytes Absolute 0.08 #; Lymphocytes % 16.1 % (21.3-54.2); Mean Corpuscular HGB Conc 29.3 GM/DL (32-36); Mean Corpuscular Volume 96.1 FL (87-102); Mean Platelet Volume 11.6 FL (9.6-12.0); Monocytes % 8.1 % (1.7-12.7); NRBC # 0.39 10*3/uL; Neutrophils % 73.7 % (38.7-73.9); Platelet Count 207 T/CUMM (130-400); Red Blood Count 3.62 MC/CUMM (3.8-5.5); Red Cell Distribution Width 19.6 % (9.3-17.3); White Blood Count 6.3 T/CUMM (4-12)
[2019-11-04] MEDS ORDERED: NOREPINEPHRINE 4 MG/4 ML VIAL IV ONE (20:17)
[2019-11-04 20:27] LABS: Albumin 1.4 G/DL (3.4-5.0); Bilirubin,Total 0.9 MG/DL (0.2-1.0); Calcium 7.7 MG/DL (8.5-10.1); Osmolality,Calculated 296.3 MOS/KG (273-304)
[2019-11-04 20:32] VITALS: BP 77/55
[2019-11-04] MEDS: NOREPINEPHRINE 8 MG in SODIUM CHLORIDE 0.9% 242 ML IV PRN (20:41)
[2019-11-04] MEDS: ALBUMIN 25% 12.5 GM in PREMIX 1 EACH IV SCH (20:42)
[2019-11-04 20:46] LABS: Anisocytosis 2+; Band Neutrophils 2 % (0-10); Burr Cells 1+; Eosinophils 1 % (0-10); Hypochromasia 2+; Lymphocytes 13 % (20-55); Microcytosis Slight; Nucleated Red Blood Cells 6 (0-5); Platelet Estimate Adequate; Segmented Neutrophils 80 % (50-85)
[2019-11-04 20:47] LABS: Total Cells Counted 100
[2019-11-05] MEDS: INSULIN LISPRO 100 UNIT/ML SUBCUT SCH ×4 (00:38→18:14)
[2019-11-05] MEDS: metroNIDAZOLE INJ 500 MG in PREMIX 1 EACH IV SCH ×4 (00:39→17:20)
[2019-11-05] MEDS: SODIUM CHLORIDE 0.45% 1,000 ML IV SCH ×2 (00:40→20:28)
[2019-11-05] MEDS: ACETYLCYSTEINE 20% 800 MG/4 ML VIAL RESP TX SCH ×4 (02:17→19:30)
[2019-11-05] MEDS: ALBUTEROL/IPRATROPIUM 3 ML NEB RESP TX SCH ×4 (02:17→19:30)
[2019-11-05] MEDS: MEROPENEM 500 MG in SODIUM CHLORIDE 0.9% 100 ML IV SCH ×4 (03:11→20:22)
[2019-11-05 03:31] LABS: Albumin 1.5 G/DL (3.4-5.0); Calcium 7.7 MG/DL (8.5-10.1); Osmolality,Calculated 299.1 MOS/KG (273-304); Total Protein 5.4 G/DL (6.4-8.3)
[2019-11-05] MEDS: ALBUMIN 25% 12.5 GM in PREMIX 1 EACH IV SCH ×3 (03:47→20:22)
[2019-11-05 04:50] LABS: Basophils % 0.6 % (0.0-0.8); Eosinophils % 0.1 % (0.00-10.9); Hematocrit 40.2 VOL% (35.7-47.0); Hemoglobin 12.1 GM/DL (12.0-16.0); Immature Granulocytes % 0.9 %; Immature Granulocytes Absolute 0.06 #; Lymphocytes # 0.9 10*3/uL (1.4-4.0); Lymphocytes % 12.5 % (21.3-54.2); Mean Corpuscular HGB Conc 30.1 GM/DL (32-36); Mean Corpuscular Volume 94.1 FL (87-102); Mean Platelet Volume 11.1 FL (9.6-12.0); Monocytes % 6.3 % (1.7-12.7); NRBC # 0.34 10*3/uL; Neutrophils % 79.6 % (38.7-73.9); Platelet Count 255 T/CUMM (130-400); Red Blood Count 4.27 MC/CUMM (3.8-5.5)
[2019-11-05 05:23] LABS: Anisocytosis 1+; Band Neutrophils 18 % (0-10); Lymphocytes 18 % (20-55); Metamyelocytes 2 %; Nucleated Red Blood Cells 4 (0-5); Platelet Estimate Normal; Segmented Neutrophils 59 % (50-85); Total Cells Counted 100
[2019-11-05 05:24] LABS: Macrocytosis 1+; Polychromasia Few
[2019-11-05] MEDS: POTASSIUM CHLORIDE INJ 30 MEQ in DEXTROSE 5% NACL 0.45% 1,000 ML IV SCH (06:30)
[2019-11-05] MEDS: ASPIRIN EC 81 MG TABLET PO SCH (09:22)
[2019-11-05] MEDS: LEVOTHYROXINE 75 MCG TABLET PO SCH (09:22)
[2019-11-05] MEDS: PANTOPRAZOLE 40 MG VIAL IV SCH (09:22)
[2019-11-05] MEDS: POTASSIUM CHLORIDE 20 MEQ/15 ML UDCUP PER TUBE SCH (09:22)
[2019-11-05] MEDS: DOCUSATE SODIUM 100 MG CAPSULE PO SCH ×2 (09:23→20:19)
[2019-11-05] MEDS: POLYETHYLENE GLYCOL POWDER 17 GM PACK PO SCH (09:23)
[2019-11-05] MEDS: DESITIN 4OZ/NYSTATIN 15 GRAM MIXTURE PASTE TOP SCH ×2 (09:23→20:26)
[2019-11-05] MEDS ORDERED: VANCOMYCIN INJ 1,250 MG in SODIUM CHLORIDE 0.9% 250 ML IV SCH (21:00)
[2019-11-06] MEDS: NOREPINEPHRINE 8 MG in SODIUM CHLORIDE 0.9% 242 ML IV PRN (00:10)
[2019-11-06] MEDS: metroNIDAZOLE INJ 500 MG in PREMIX 1 EACH IV SCH ×4 (00:42→17:17)
[2019-11-06] MEDS: POTASSIUM CHLORIDE INJ 30 MEQ in DEXTROSE 5% NACL 0.45% 1,000 ML IV SCH (00:43)
[2019-11-06] MEDS: INSULIN LISPRO 100 UNIT/ML SUBCUT SCH ×2 (00:45→06:03)
[2019-11-06] MEDS: ACETYLCYSTEINE 20% 800 MG/4 ML VIAL RESP TX SCH ×2 (00:49→07:14)
[2019-11-06] MEDS: ALBUTEROL/IPRATROPIUM 3 ML NEB RESP TX SCH ×2 (00:49→07:14)
[2019-11-06] MEDS: MEROPENEM 500 MG in SODIUM CHLORIDE 0.9% 100 ML IV SCH ×3 (03:27→15:45)
[2019-11-06] MEDS: ALBUMIN 25% 12.5 GM in PREMIX 1 EACH IV SCH (03:27)
[2019-11-06 03:43] LABS: Basophils % 0.6 % (0.0-0.8); Eosinophils % 0.2 % (0.00-10.9); Hematocrit 34.2 VOL% (35.7-47.0); Hemoglobin 10.1 GM/DL (12.0-16.0); Immature Granulocytes % 0.8 %; Immature Granulocytes Absolute 0.04 #; Lymphocytes # 0.9 10*3/uL (1.4-4.0); Lymphocytes % 17.5 % (21.3-54.2); Mean Corpuscular HGB Conc 29.5 GM/DL (32-36); Mean Corpuscular Volume 96.3 FL (87-102); Mean Platelet Volume 11.2 FL (9.6-12.0); Monocytes % 6.3 % (1.7-12.7); Neutrophils % 74.6 % (38.7-73.9); Platelet Count 281 T/CUMM (130-400); Red Blood Count 3.55 MC/CUMM (3.8-5.5); White Blood Count 5.1 T/CUMM (4-12)
[2019-11-06 04:18] LABS: Prealbumin 11.4 MG/DL (20-40)
[2019-11-06 04:19] LABS: Bilirubin,Total 1.2 MG/DL (0.2-1.0); Calcium 7.8 MG/DL (8.5-10.1); Osmolality,Calculated 309.4 MOS/KG (273-304); Total Protein 4.6 G/DL (6.4-8.3)
[2019-11-06 04:57] LABS: Band Neutrophils 6 % (0-10); Eosinophils 1 % (0-10); Hypochromasia 1+; Lymphocytes 24 % (20-55); Nucleated Red Blood Cells 5 (0-5); Platelet Estimate Adequate; Segmented Neutrophils 64 % (50-85); Total Cells Counted 100
[2019-11-06 04:58] LABS: Macrocytosis Slight; Polychromasia Slight
[2019-11-06] MEDS: ASPIRIN EC 81 MG TABLET PO SCH (09:27)
[2019-11-06] MEDS: DOCUSATE SODIUM 100 MG CAPSULE PO SCH (09:27)
[2019-11-06] MEDS: POLYETHYLENE GLYCOL POWDER 17 GM PACK PO SCH (09:27)
[2019-11-06] MEDS: LEVOTHYROXINE 75 MCG TABLET PO SCH (09:28)
[2019-11-06] MEDS: PANTOPRAZOLE 40 MG VIAL IV SCH (09:28)
[2019-11-06] MEDS: DESITIN 4OZ/NYSTATIN 15 GRAM MIXTURE PASTE TOP SCH (09:39)
[2019-11-06] MEDS: MORPHINE 4 MG/1 ML VIAL IV PRN ×2 (11:40→12:40)
== END 2019-11-06 14:37 | disposition expired | DRG 871 ==
LOC: N.ED 10:24 → N.EDINP 14:31 → SUATTDRO 14:31 → N.3E 15:20 → N.ICU 10-30 17:55 → N.CLINP 10-31 21:00 → N.3E 11-03 15:32 → N.ICU 11-04 19:46
PROVIDERS: ADMIT Family Medicine; ATTEND Internal Medicine